=== PATIENT | male | born 1955 | race Caucasian/White ===

== ENCOUNTER 2017-08-14 06:53 | Outpatient (CLI) | payer BC ==
[~2017-08-14] VITALS: Ht 179.1 cm; Wt 137.6 kg
[2017-08-14 08:17] VITALS: BP 137/52; PULSE 80; TEMP 98.3
[2017-08-14] MEDS ORDERED: HCTZ 25MG TAB25 MG PO (08:24)
[2017-08-14] MEDS ORDERED: GLUCOPHAGE1000 MG PO (08:25)
[2017-08-14] MEDS ORDERED: PRAVACHOL 20MG20 MG PO (08:25)
[2017-08-14] MEDS ORDERED: ZESTRIL40 MG PO (08:26)
[2017-08-14] MEDS ORDERED: BYSTOLIC10 MG PO (08:26)
[2017-08-14] MEDS ORDERED: TRADJENTA5 MG PO (08:27)
[2017-08-14] MEDS ORDERED: ASPIRIN 32325 MG/TAB PO (08:29)
[2017-08-14] MEDS ORDERED: PERCOCET 325 MG1 TA2 PO (08:29)
[2017-08-14] MEDS ORDERED: IRON PO (08:30)
[2017-08-14 09:49] LABS: BASO % 0.4 % (0.0-2.0); EOS # 0.2 (0.0-0.7); EOS % 2.4 % (0-4.0); GRAN # 4.8 (1.4-6.5); GRAN % 64.5 % (42.2-75.2); LYMPH # 1.5 (1.2-3.4); LYMPH % 19.9 % (20.0-51.0); MEAN CELL VOLUME 83 fl (80.0-100.0); MEAN CORPUSCULAR HGB CONC 31 g/dl (33.0-37.0); MEAN PLATELET VOLUME 11.7 fl (7.4-10.4); MONO # 0.9 (0.1-0.6); PLATELET COUNT 180 K/mm3 (130-400); RED BLOOD COUNT 3.85 M/mm3 (4.20-5.60); REDCELL DISTRIBUTION WIDTH-CV 14.2 % (11.5-14.5); WHITE BLOOD COUNT 7.4 K/mm3 (4.8-10.8)
[2017-08-14 09:51] LABS: MEAN CORPUSCULAR HEMOGLOBIN 26 pg (27.0-31.0)
[2017-08-14 09:55] VITALS: BP 149/77; PULSE 76
[2017-08-14 10:12] VITALS: BP 169/74; PULSE 74
[2017-08-14 10:30] VITALS: BP 139/72; PULSE 78
[2017-08-14 11:00] VITALS: BP 146/63; PULSE 78
[2017-08-14 15:05] VITALS: BP 114/59; PULSE 75
== END 2017-08-14 11:09 | disposition home or self-care (01) ==
LOC: SDCO 06:53
PROVIDERS: Pathology Anatomic Pathology & Clinical Pathology
DX: D50.9 Iron deficiency anemia, unspecified (principal); R70.0 Elevated erythrocyte sedimentation rate; R53.83 Other fatigue; E78.5 Hyperlipidemia, unspecified; E66.9 Obesity, unspecified; R63.4 Abnormal weight loss; R19.7 Diarrhea, unspecified; Z80.43 Family history of malignant neoplasm of testis; Z80.9 Family history of malignant neoplasm, unspecified; I10 Essential (primary) hypertension
CPT/HCPCS: J2250; J2704; J3010